=== PATIENT | male | born 1990 | race Two or more races ===

== ENCOUNTER 2017-12-21 19:13 | Emergency (ER) | payer SELFPAY ==
[~2017-12-21] VITALS: Ht 175.3 cm; Wt 104.3 kg
--- NOTE | 2017-12-21 19:18 | NUR ---
PT AMBULATORY TO ER BED 14. PT BIB SELF C/O GENERALIZED BODY ACHES. PT PLACED IN GOWN AND ON MERCANTILE AGENT. VSS/RESP EVEN UNLABORED/NAD NOTED/SKIN WARM AND DRY/DENIES N-V-D/AFEBRILE/AOX4. AWAITING MD PICKARD.
--- NOTE | 2017-12-21 19:35 | NUR ---
LAB AT BEDSIDE FOR DRAW.
[2017-12-21 19:43] LABS: BASOPHILS # (AUTO) 0.2 /CMM (0.0-0.2); BASOPHILS % (AUTO) 1.9 % (0.0-2.0); EOSINOPHILS % (AUTO) 0.7 % (0.0-6.0); HEMATOCRIT 52 % (39-51); HEMOGLOBIN 17.3 g/dL (13.5-17.5); LYMPHOCYTES # (AUTO) 1.6 /CMM (0.8-4.8); LYMPHOCYTES % (AUTO) 17.6 % (20.0-44.0); MEAN CORPUSCULAR HGB CONC 34 g/dl (31.0-36.0); MEAN CORPUSCULAR VOLUME 78 fL (80-96); MONOCYTES # (AUTO) 0.2 /CMM (0.1-1.30); MONOCYTES % (AUTO) 2.7 % (2.0-12.0); NEUTROPHILS % (AUTO) 77.1 % (43.0-81.0); PLATELET COUNT (AUTO) 190 /CMM (150-450); RDW COEFFICIENT OF VARIATION 12.2 (11.5-15.0); RED BLOOD CELL COUNT(AUTO) 6.58 MIL/uL (4.5-6.0); WHITE BLOOD COUNT (AUTO) 9.1 K/uL (4.3-11.0)
[2017-12-21 19:52] LABS: CALCIUM, SERUM 8.8 mg/dL (8.5-10.1); POTASSIUM 3.7 mmol/L (3.5-5.1)
--- NOTE | 2017-12-21 19:53 | NUR ---
URINE SPECIMEN OBTAINED AND SENT TO THE LAB.
[2017-12-21 19:59] LABS: APPEARANCE,URINE Slightly Cloudy (CLEAR); BILIRUBIN,URINE Negative (NEGATIVE); BLOOD, URINE Trace-lysed Ery/uL (NEGATIVE); COLOR,URINE Yellow (YELLOW); KETONES,URINE Negative (NEGATIVE); LEUKOCYTE ESTERASE ,URINE Negative (NEGATIVE); NITRITE, URINE Negative (NEGATIVE); PH,URINE 5.5 (5.0-8.0); PROTEIN,URINE >=300 mg/dl (NEGATIVE); UGLUCOSE Negative (NEGATIVE); UROBILINOGEN,URINE 0.2 EU/dL (0.2)
[2017-12-21 19:59] LABS: BILIRUBIN,DIRECT 0.1 mg/dL (0.0-0.2); BILIRUBIN,TOTAL 0.4 mg/dL (0.2-1.0); TOTAL PROTEIN, SERUM 8.2 g/dL (6.4-8.2)
[2017-12-21 20:16] LABS: BACTERIA,URINE Moderate /HPF (None Seen); SQUAMOUS EPITHELIAL CELL,UR Moderate /HPF (None Seen)
[2017-12-21 20:18] LABS: URINE AMORPHOUS URATE Moderate /HPF (None Seen); WBC,URINE 0-2 /HPF (0-3)
--- NOTE | 2017-12-21 20:26 | NUR ---
PT TO CT VIA WC.
--- NOTE | 2017-12-21 20:31 | NUR ---
PT BACK FROM CT.
[2017-12-21] MEDS ORDERED: KETOROLAC TROMETHAMINE INJ 60 MG/2 ML VIAL IM ONE ×4 (21:08→22:30)
--- NOTE | 2017-12-21 21:26 | NUR ---
PT REFUSED TORADOL, MADE AWARE.
--- NOTE | 2017-12-21 22:11 | NUR ---
Patient discharged to home in stable condition. Written and verbal after care instructions given. Patient verbalizes understanding of instruction. Patient ambulatory with a steady gait.
[2017-12-21 22:12] VITALS: BP 128/70
== END 2017-12-21 22:12 | disposition home or self-care (01) ==
LOC: ER 19:18
DX: R51 Headache (principal); Z60.2 Problems related to living alone
CPT/HCPCS: 36415; 70450; 80048; 80076; 81001; 83690; 85025; 87086; 96372; 99285; A4606; J1885; Z7610; 81000-TC

== ENCOUNTER 2020-05-30 13:04 | Emergency (ER) | payer MEDICAID ==
[~2020-05-30] VITALS: Ht 180.3 cm; Wt 172.4 kg
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
--- NOTE | 2020-05-30 13:31 | NUR ---
PT SEEN AND EXAMINED BY .
--- NOTE | 2020-05-30 13:40 | NUR ---
IV LINE ESTABLISHED BLOOD DRAWN AND SENT TO LAB.
--- NOTE | 2020-05-30 13:53 | NUR ---
URINE SPECIMEN COLLECTED AND SENT TO LAB.
[2020-05-30 13:55] LABS: BASOPHILS # (AUTO) 0.1 /CMM (0.0-0.2); BASOPHILS % (AUTO) 0.6 % (0.0-2.0); EOSINOPHILS % (AUTO) 0.8 % (0.0-6.0); HEMATOCRIT 50 % (39-51); HEMOGLOBIN 16.2 g/dL (13.5-17.5); LYMPHOCYTES # (AUTO) 1.8 /CMM (0.8-4.8); LYMPHOCYTES % (AUTO) 20.5 % (20.0-44.0); MEAN CORPUSCULAR HGB CONC 33 g/dl (31.0-36.0); MEAN CORPUSCULAR VOLUME 80 fL (80-96); MONOCYTES # (AUTO) 0.5 /CMM (0.1-1.30); MONOCYTES % (AUTO) 6.2 % (2.0-12.0); NEUTROPHILS # (AUTO) 6.4 /CMM (1.8-8.9); NEUTROPHILS % (AUTO) 71.9 % (43.0-81.0); PLATELET COUNT (AUTO) 178 /CMM (150-450); RED BLOOD CELL COUNT(AUTO) 6.21 MIL/uL (4.5-6.0); WHITE BLOOD COUNT (AUTO) 8.9 K/uL (4.3-11.0)
[2020-05-30] MEDS ORDERED: IV NS 0.9% 1,000 ML BAG IV ONE (14:00)
[2020-05-30 14:02] LABS: CALCIUM, SERUM 8.7 mg/dL (8.5-10.1); CARBON DIOXIDE 20 mmol/L (21-32); CHLORIDE 107 mmol/L (98-107); CREATININE 1.3 mg/dL (0.6-1.3); GLUCOSE 155 mg/dL (74-106); POTASSIUM 3.9 mmol/L (3.5-5.1); SODIUM SERUM 142 mmol/L (136-145); UREA NITROGEN, BLOOD 13 mg/dL (7-18)
[2020-05-30 15:36] VITALS: BP 121/68
--- NOTE | 2020-05-30 15:36 | NUR ---
IV removed. Catheter intact and site benign. Pressure and 4x4 applied to site. No bleeding noted. Patient discharged to home in stable condition. Written and verbal after care instructions given. Patient verbalizes understanding of instruction.
== END 2020-05-30 15:37 | disposition home or self-care (01) ==
LOC: ER 13:06
DX: R07.89 Other chest pain (principal); Z60.2 Problems related to living alone; Y08.89XA Assault by other specified means, initial encounter; Y93.89 Activity, other specified; Y92.89 Other specified places as the place of occurrence of the external cause; Y99.8 Other external cause status
CPT/HCPCS: 36415; 71045; 80048; 80305; 84484; 85025; 93005; 96360; 99285; J7030

== ENCOUNTER 2021-07-31 02:08 | Inpatient (IN) | payer MEDICAID ==
[2021-07-31] VITALS (18 sets, daily range): BP systolic 91–178; BP diastolic 52–105
[~2021-07-31] VITALS: Ht 342.9 cm; Wt 162.8 kg
--- NOTE | 2021-07-31 03:36 | NUR ---
COVID/FLU SWAB COLLECTED AND SENT TO LAB
[2021-07-31 03:54] LABS: EOSINOPHILS % (AUTO) 0.3 % (0.0-6.0); HEMATOCRIT 56 % (39-51); LYMPHOCYTES # (AUTO) 0.4 K/uL (0.8-4.8); LYMPHOCYTES % (AUTO) 3.8 % (20.0-44.0); MEAN CORPUSCULAR HGB CONC 29 g/dl (31.0-36.0); MEAN CORPUSCULAR VOLUME 92 fL (80-96); MONOCYTES # (AUTO) 0.3 K/uL (0.1-1.30); NEUTROPHILS # (AUTO) 9.5 K/uL (1.8-8.9); NEUTROPHILS % (AUTO) 92.9 % (43.0-81.0); PLATELET COUNT (AUTO) 215 K/uL (150-450); RED BLOOD CELL COUNT(AUTO) 6.05 MIL/uL (4.5-6.0); WHITE BLOOD COUNT (AUTO) 10.2 K/uL (4.3-11.0)
[2021-07-31] MEDS ORDERED: IV NS 0.9% 250 ML IV ONE (04:21)
[2021-07-31] MEDS ORDERED: IOHEXOL-350 100 ML VIAL IV ONE (04:21)
[2021-07-31 05:36] LABS: ALANINE AMINOTRANSFERASE 100 U/L (12-78); ALBUMIN 3.1 g/dL (3.4-5.0); ALKALINE PHOSPHATASE 323 U/L (46-116); ASPARTATE AMINOTRANSFERASE 89 U/L (15-37); BILIRUBIN,TOTAL 0.7 mg/dL (0.2-1.0); CALCIUM, SERUM 8.4 mg/dL (8.5-10.1); CARBON DIOXIDE 20 mmol/L (21-32); POTASSIUM 5.9 mmol/L (3.5-5.1); SODIUM SERUM 121 mmol/L (136-145); TOTAL PROTEIN, SERUM 6.9 g/dL (6.4-8.2); UREA NITROGEN, BLOOD 44 mg/dL (7-18)
[2021-07-31 05:38] LABS: CHLORIDE 79 mmol/L (98-107)
[2021-07-31 05:39] LABS: GLUCOSE > 500 mg/dL (74-106)
[2021-07-31] MEDS ORDERED: INSULIN REGULAR, HUMAN 100 UNIT/ML 10 ML VIAL ONE ×2 (05:52→06:32)
--- NOTE | 2021-07-31 05:58 | NUR ---
[facility] PAGED
[2021-07-31] MEDS ORDERED: INSULIN REGULAR, HUMAN 100 UNIT/ML 10 ML VIAL SQ ONE (06:00)
--- NOTE | 2021-07-31 06:16 | NUR ---
EPIC PANEL PAGED
[2021-07-31] MEDS ORDERED: ONDANSETRON HCL/PF 4 MG/2 ML VIAL IVP PRN (06:30)
[2021-07-31] MEDS ORDERED: SODIUM BICARBONATE SYR 50 MEQ/50 ML DISP.SYRIN IV ONE (06:30)
[2021-07-31] MEDS ORDERED: Z GUARD REMEDY 2 OZ OINT TP PRN (06:30)
[2021-07-31] MEDS ORDERED: CALCIUM CHLORIDE 1,000 MG/10 ML DISP.SYRIN ONE (06:30)
[2021-07-31] MEDS ORDERED: CALCIUM CHLORIDE 1,000 MG/10 ML DISP.SYRIN IV ONE (06:30)
[2021-07-31] MEDS ORDERED: DEXTROSE 50%-WATER 50 ML DISP.SYRIN IV PRN (06:30)
[2021-07-31] MEDS ORDERED: MAG HYDROX/AL HYDROX/SIMETH 30 ML UDC PO PRN (06:30)
[2021-07-31] MEDS ORDERED: IV NS 0.9% 1,000 ML IV PRN (06:30)
[2021-07-31] MEDS ORDERED: INSULIN REGULAR, HUMAN 100 UNITS in IV NS 0.9% 100 ML IV PRN (06:30)
[2021-07-31] MEDS ORDERED: MAGNESIUM HYDROXIDE 30 ML UDC PO PRN (06:30)
[2021-07-31] MEDS ORDERED: SODIUM BICARBONATE SYR 50 MEQ/50 ML DISP.SYRIN ONE (06:30)
[2021-07-31] MEDS ORDERED: IV NS 0.9% 2,000 ML IV ONE (06:30)
[2021-07-31] MEDS ORDERED: ZOLPIDEM TARTRATE 5 MG TABLET PO PRN (06:30)
[2021-07-31] MEDS ORDERED: ACETAMINOPHEN 325 MG TABLET PO PRN (06:30)
--- NOTE | 2021-07-31 06:39 | NUR ---
MRSA SWAB COLLECTED AND SENT TO LAB. PATIENT'S BELONGINGS LIST DONE.
[2021-07-31 07:25] LABS: BAND % (MANUAL) 9 % (0.0-5.0); EOSINOPHILS % (MANUAL) 1 % (0-4); LYMPHOCYTES % (MANUAL) 3 % (16-48); MONOCYTES % (MANUAL) 1 % (0-11.0); NEUTROPHILS % (MANUAL) 86 (42-76)
--- NOTE | 2021-07-31 07:59 | NUR ---
ROOM 256
--- NOTE | 2021-07-31 08:12 | NUR ---
report given to Agus
[2021-07-31 08:16] LABS: CALCIUM, SERUM 9.3 mg/dL (8.5-10.1); MAGNESIUM 2.8 mg/dL (1.8-2.4); PHOSPHORUS 5.6 mg/dL (2.5-4.9); POTASSIUM 3.8 mmol/L (3.5-5.1)
--- NOTE | 2021-07-31 08:54 | NUR ---
RT NOTE ABG RESULTS PLACED IN PATIENT'S CHART. RN VAISHALI AWARE. ABG RESULTS ENDORSED TO MD TIRADO AND RN VAISHALI.
--- NOTE | 2021-07-31 09:00 | NUR ---
Received patient from ED ON room air and on insulin drip runnign 12.12 units/hour. Patient noted with extreme restlessness and anxious and pulling on his tubes. Blood sugar checked and patient continues on the 12.12 units. Awaiting BMP results as scheduled. Patient will be monitored call light with in reach.
[2021-07-31] MEDS: BLOOD SUGAR DIAGNOSTIC 1 EACH STRIP IN SCH ×15 (09:18→23:15)
[2021-07-31] MEDS: IV NS 0.9% 1,000 ML IV SCH ×3 (09:19→19:57)
[2021-07-31] MEDS: INSULIN REGULAR, HUMAN 100 UNIT in IV NS 0.9% 99 ML IV PRN ×3 (09:47→22:41)
--- NOTE | 2021-07-31 10:40 | NUR ---
Patient's BMP drawn for ANION GAP AND ACCUECHECK AT 1040 AM. PENDING RESULTS
--- NOTE | 2021-07-31 10:45 | NUR ---
Received call from Lab that patient's previously done BMP in ER showed blood sugar of 1605 mg/dl. Patient on acucheck hourly and running insulin drip at 12.12 units/hour.
[2021-07-31 10:52] LABS: ABG BASE EXCESS -7.4 mmol/L; ABG OXYGEN SATURATION 93.2 % (92.0-98.5); ABG PCO2 31.9 mmHg (35.0-45.0); ABG PH 7.343 (7.350-7.450); ABG PO2 72.4 mmHg (75.0-100.0); AaDO2 39.1 mmHg; COHb 0.6 % (0.5-1.5); MetHb 0.4 % (0.0-1.5); O2Hb 92.3 % (94.0-97.0); SITE, ABG Right Radial; VENT MODE, BG ROOM AIR
--- NOTE | 2021-07-31 11:00 | NUR ---
MD Winston made aware regarding blood sugar and per MD to change the dose to 24 units/hour. Pharmacy made aware.
[2021-07-31] MEDS: LORAZEPAM INJ 2 MG/ML VIAL IV PRN ×2 (11:24→21:06)
--- NOTE | 2021-07-31 12:00 | NUR ---
Patient continues on 24 units of insulin.
[2021-07-31 12:33] LABS: CREATININE 3.1 mg/dL (0.6-1.3); MAGNESIUM 2.7 mg/dL (1.8-2.4); PHOSPHORUS 3.8 mg/dL (2.5-4.9); POTASSIUM 3.9 mmol/L (3.5-5.1)
[2021-07-31] MEDS ORDERED: LORAZEPAM INJ 2 MG/ML VIAL IV ONE (12:45)
--- NOTE | 2021-07-31 15:00 | NUR ---
Patient's bmp shows blood sugar levels trending down along with anion gap. Patient continues on 24 units/hour. HOB kept elevated.
[2021-07-31 15:33] LABS: CALCIUM, SERUM 8.8 mg/dL (8.5-10.1); CREATININE 4.1 mg/dL (0.6-1.3); POTASSIUM 3.6 mmol/L (3.5-5.1)
[2021-07-31 15:39] LABS: MAGNESIUM 2.6 mg/dL (1.8-2.4); PHOSPHORUS 2.2 mg/dL (2.5-4.9)
--- NOTE | 2021-07-31 16:30 | NUR ---
Patient's noted with bmp blood sugar levels of 878 and per MD shahzad dinh protocol , insulin decreased to 17.5 units/hour. Patient noted with temp of 102.5 axillary. Provided with tylenol rectally along with cooling measures with good effect. Md avery made aware and ordered blood cultures xc2, urine culture along with rocephin 1 gram daily.
[2021-07-31] MEDS: ACETAMINOPHEN 650 MG/SUPP.RECT RC PRN (16:47)
--- NOTE | 2021-07-31 17:52 | NUR ---
Blood cultures drawn and glucose test drawn
--- NOTE | 2021-07-31 20:00 | NUR ---
CABLE SPOOLER NOTE PT IN BED HALF SLEEPY, A/O X 1, ANXIOUS AND LITTLE RESTLESS. NO S/S OF PAIN NOTED. ON TELE ST HR 123. PT REMAIN NPO. LFA MIDLINE INFUSING INSULIN 17.5 UNITS /HR AND NS @ 150 ML/HR, NO S/S OF INFILTRATION NOTED. KEPT HIM DRY AND CLEAN. PT REMAIN IN BILATERAL SOFT WRIST RESTRAINTS. FEVER IS COMING DOWN TO 100.3 AXILLARY. DUE TO RESTLESSNESS UNABLE TO GET B/P AT TIMES. ON O2 2L VIA N/C O2 SAT 98% SIDE RAILS UP X 2 AND CALL LIGHT WITHIN REACH. CONTINUE TO MONITOR HIM.
--- NOTE | 2021-07-31 20:11 | NUR ---
RN CLOSING NOTES Patient is in bed, restless and anxious and on 2 liters 02 via n/c with 02 sat of 98%. HOB kept elevated. Patient previously removed midline to right ua and new midline placed to left forearm. IV fluids and insulin drip running at 17.5 units/hour. Bilateral wrist restraints noted. NO s/s of skin breakdown. Patient redirected throughout shift.Endorse to next shift to collect urine.
[2021-07-31 20:12] LABS: CALCIUM, SERUM 9.2 mg/dL (8.5-10.1); CREATININE 4.6 mg/dL (0.6-1.3); POTASSIUM 4.2 mmol/L (3.5-5.1)
[2021-07-31] MEDS ORDERED: CEFTRIAXONE 1 G in IV D5W 50 ML IV SCH (20:30)
--- NOTE | 2021-07-31 20:30 | NUR ---
PHARMACIST'S AIDE NOTE PT BS CHECKING Q1H. REMAIN HIGHER THAN 600. CONTINUES ON INSULIN DRIP AT 17.5 UNITS /HR AND ANION GAP AT 24. CONTINUE TO MONITOR HIM. Addendum: 08/01/21 at 0105 by LARRY AVILES RN MD FRANCO MADE AWARE THAT PT BS REMAIN SHOWING HIGH ABOVE 600 AND CONTINUE WITH INSULIN DRIP AT 17.5 UNITS/HR. NNO CONTINUE TO MONITOR.
[2021-07-31] MEDS ORDERED: CEFTRIAXONE 1 G VIAL ONE (20:42)
--- NOTE | 2021-07-31 21:06 | NUR ---
IMPROVEMENT NURSE NOTE PT BECOME RESTLESS AND TRYING TO CLIMB OUT OF BED ATIVAN 1 MG IVP GIVEN. CONTINUE TO MONITOR HIM.
--- NOTE | 2021-07-31 21:36 | NUR ---
MOLD MAKING SUPERVISOR NOTE PT CALM DOWN. CONTINUE TO MONITOR HIM.
--- NOTE | 2021-07-31 22:10 | NUR ---
SWEATER DESIGNER NOTE PT NOTED WITH RESP 64 REMAIN ON 2L VIA N/C 93%. STAT ABG DONE. ALSO APPLIED O2 NRB MASK 15L O2 SAT CAME UP TO 99%. REPOSITION PT IN BED. WILL FOLLOW UP WITH ABG RESULT.
--- NOTE | 2021-07-31 22:30 | NUR ---
BRIQUETTE OPERATOR NOTE CHARGE NURSE INFORMED THE MD. PER MD HE WILL CALL BACK.
--- NOTE | 2021-07-31 23:00 | NUR ---
RISK REDUCTION COUNSELOR NOTE RT REPEATED ABG AND PER RESULT PUT BACK PT ON 2L VIA NC O2 SAT 95%. PT REMAIN RESTLESS AT TIMES.
--- NOTE | 2021-07-31 23:19 | NUR ---
WIRE HARNESS ASSEMBLER NOTE CHARGE NURSE CALLED MD FRACNO AND LEFT A MESSAGE FOR TO EVALUATE THE PT. RESP RATE AGAIN WENT UP TO 60.
[2021-07-31 23:42] LABS: CALCIUM, SERUM 8.6 mg/dL (8.5-10.1); CREATININE 5.6 mg/dL (0.6-1.3); POTASSIUM 3.9 mmol/L (3.5-5.1)
--- NOTE | 2021-07-31 23:47 | NUR ---
REHABILITATION THERAPY TECHNICIAN NOTE MD FRANCO CALLED BACK AND GAVE NEW ORDERS. ORDERS NOTED. AND CARRIED OUT. Addendum: 08/01/21 at 0103 by LARRY AVILES RN ALSO CHARGE NURSE ANA INFORMED REGARDING TWO ABG'S RESULT ONE WITH 2L O2 AND ONE WITH 15L NRM .
--- NOTE | 2021-07-31 23:51 | NUR ---
TOWN ADMINISTRATOR NOTE RIDDLE CATH PLACED, NO OUTPUT NOTED AT THIS TIME.
[2021-08-01] VITALS: BP 111/45
[2021-08-01] MEDS ORDERED: IV NS 0.9% 1,000 ML IV PRN
[2021-08-01 00:01] VITALS: BP 111/45
[2021-08-01] MEDS: BLOOD SUGAR DIAGNOSTIC 1 EACH STRIP IN SCH ×3 (00:30→02:20)
[2021-08-01] MEDS: ACETAMINOPHEN 650 MG/SUPP.RECT RC PRN (00:45)
--- NOTE | 2021-08-01 00:45 | NUR ---
COUNSELOR NURSES' ASSOCIATION NOTE NOTED PT WITH FEVER OF 101.8, TYLENOL SUPPOSITORY GIVEN. ALSO REPOSITION HIM. BODY COOLING MEASURE APPLIED.
[2021-08-01 01:00] VITALS: BP 104/47
[2021-08-01 02:00] VITALS: BP 93/48
--- NOTE | 2021-08-01 02:00 | NUR ---
BUSINESS PERFORMANCE MANAGER NOTE FEVER CAME DOWN TO 98.4 AUXILIARY, ON TELE SR 86, PT IS CALM AND ASLEEP, NO DISTRESS NOTED. BLOOD SUGAR ALSO TRENDING DOWN TO 361.
--- NOTE | 2021-08-01 02:27 | NUR ---
[employer] ARCHITECT NOTE EDWARD CUNNINGHAM PASSING BY THE ROOM NOTED PT IS NON RESPONDING AND HR IS GOING DOWN. IMMEDIATELY FAMILIA PEARCE CALLED. AND UNABLE TO FIND PULSE CPR STARTED. AND FAMILIA PEARCE TEAM TOOK OVER. Addendum: 08/01/21 at 0652 by LARRY AVILES RN ALSO RESTRAINTS RELEASED FROM BOTH WRISTS AT 0227
[2021-08-01] MEDS ORDERED: CALCIUM CHLORIDE 1,000 MG/10 ML DISP.SYRIN ONE (02:38)
[2021-08-01] MEDS ORDERED: CALCIUM CHLORIDE 1,000 MG/10 ML DISP.SYRIN IV ONE (02:46)
[2021-08-01] MEDS ORDERED: EPINEPHRINE (1:10,000) SYRINGE 1 MG/10 ML DISP.SYRIN IVP ONE (02:46)
[2021-08-01] MEDS ORDERED: SODIUM BICARBONATE SYR 50 MEQ/50 ML DISP.SYRIN IV ONE (02:46)
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
--- NOTE | 2021-08-01 03:20 | NUR ---
CELL ASSEMBLY PINNER NOTE FAMILY ARRIVED. PRIVACY GIVEN TO THEM FOR GRIEVING ALSO TISSUES AND WATER PROVIDED.
--- NOTE | 2021-08-01 04:35 | NUR ---
INDUSTRIAL LOCOMOTIVE OPERATOR NOTE INFOMED CRANK HAND'S OFFICE TALKED WITH Carolina AGUILAR ALL THE INFO GIVEN. ACCORDING TO LAUREN NO CRANK HAND'S CASE. CHARGE NURSE INFORMED. ALSO NURSING FLAG SIGNALMAN.
--- NOTE | 2021-08-01 05:30 | NUR ---
EDITOR SCHOOL PHOTOGRAPH NOTE POST CARE GIVEN. FAMILY STILL PRESENT OUTSIDE THE ROOM.
--- NOTE | 2021-08-01 06:10 | NUR ---
PROMOTION OFFICER NOTE [employer] ARRIVED. DOCUMENTS SIGNED BY BOTH FAMILY AND MORTUARY STAFF. NO BELONGINGS FOR THE PT. BODY TRANSFERRED OUT VIA GURNEY WITH MORTUARY STAFF.
[2021-08-01 11:40] LABS: ABG BASE EXCESS -1.3 mmol/L; ABG OXYGEN SATURATION 99.2 % (92.0-98.5); ABG PCO2 41.6 mmHg (35.0-45.0); ABG PH 7.376 (7.350-7.450); ABG PO2 227.1 mmHg (75.0-100.0); AaDO2 444.3 mmHg; COHb 0.3 % (0.5-1.5); MetHb 0.6 % (0.0-1.5); O2Hb 98.3 % (94.0-97.0); SITE, ABG Right Radial; VENT MODE, BG NRB 100%
== END 2021-08-01 02:47 | DRG 720 ==
LOC: ER 02:14 → ICU 08:02
PROVIDERS: ADMIT Internal Medicine; ATTEND Internal Medicine
PROC: 05H933Z Insertion of Infusion Device into Right Brachial Vein, Percutaneous Approach (ICD-10-PCS; principal; 2021-07-31)
PROC: 05HC33Z Insertion of Infusion Device into Left Basilic Vein, Percutaneous Approach (ICD-10-PCS; 2021-07-31)
PROC: 0BH17EZ Insertion of Endotracheal Airway into Trachea, Via Natural or Artificial Opening (ICD-10-PCS; 2021-07-31)
PROC: 5A2204Z Restoration of Cardiac Rhythm, Single (ICD-10-PCS; 2021-07-31)
DX: A41.9 Sepsis, unspecified organism (principal); N17.0 Acute kidney failure with tubular necrosis; G93.41 Metabolic encephalopathy; E11.10 Type 2 diabetes mellitus with ketoacidosis without coma; E43 Unspecified severe protein-calorie malnutrition; E86.1 Hypovolemia; E66.01 Morbid (severe) obesity due to excess calories; E87.5 Hyperkalemia; E87.1 Hypo-osmolality and hyponatremia; E83.39 Other disorders of phosphorus metabolism; Z20.822 Contact with and (suspected) exposure to COVID-19; G31.84 Mild cognitive impairment of uncertain or unknown etiology
CPT/HCPCS: 36410; 36415; 36600; 71045-TC; 76770-TC; 80048-TC; 80053-TC; 80061-TC; 82803-TC; 82962-TC; 83735-TC; 83880; 84100-TC; 84484-TC; 85025-TC; 85378-TC; 87040-TC; 87081-TC; C9803; G0378; J0171; J0696; J1815; J2060; J3490; J7030; J7050; J7060; Q9967